=== PATIENT | female | born 1960 | race Two or more races ===

== ENCOUNTER 2021-08-31 13:52 | Inpatient (IN) | payer MEDICAID, OTHER ==
[~2021-08-31] VITALS: Ht 160 cm; Wt 103.8 kg
[2021-08-31] MEDS ORDERED: cloNIDine HCL 0.1 MG TAB ONE (14:12)
[2021-08-31] MEDS ORDERED: cloNIDine HCL 0.1 MG TAB PO ONE (14:30)
[2021-08-31 15:27] LABS: Eosinophils # (auto) 0.1 10 ^3/uL (0-0.8); Hemoglobin 12.2 g/dL (12.2-16.2); Monocytes # (auto) 0.2 10 ^3/uL (0-1.3); Nucleated Red Blood Cells % 0.1 %
[2021-08-31 15:34] LABS: Basophils # (auto) 0.1 10 ^3/uL (0-0.2); Basophils % (auto) 2.5 % (0.0-2.0); Eosinophils % (auto) 1.6 % (0.0-7.0); Hematocrit 37.2 % (36.0-46.0); Lymphocytes # (auto) 1.7 10 ^3/uL (0.4-5.4); Lymphocytes % (auto) 32.8 % (10.0-50.0); Mean Corpuscular Hemoglobin 28.5 pg (28.0-32.0); Mean Corpuscular Hgb Conc. 32.7 g/dL (32.0-36.0); Monocytes % (auto) 3.5 % (0.0-12.0); Neutrophils % (auto) 59.6 % (37.0-80.0); Red Blood Cells 4.28 10^6/uL (4.0-5.20); Red Cell Distribution Width 15.3 % (11.8-14.3); White Blood Cell 5.1 10^3/uL (4.4-10.8)
[2021-08-31 15:42] LABS: INR 1.02 (0.9-1.15); Partial Thromboplastin Time 27.3 sec (23.6-33.0)
[2021-08-31 15:49] LABS: Potassium 3.7 mmol/L (3.5-5.1)
[2021-08-31 15:50] LABS: Albumin 3.6 g/dL (3.4-5.0)
[2021-08-31 15:53] LABS: BUN/Creatinine Ratio 11.7; Bilirubin, Total 0.5 mg/dL (0.2-1.0); Total Protein 7.4 g/dL (6.4-8.2)
[2021-08-31] MEDS ORDERED: ENOXAPARIN SOD 100 MG/1 ML SYRINGE SC ONE (19:45)
[2021-08-31] MEDS ORDERED: ASPirin 81 mg TAB PO ONE (19:45)
[2021-08-31] MEDS ORDERED: NITROGLYCERIN 0.4 MG SL TAB SL PRN ×2 (20:45)
[2021-08-31] MEDS ORDERED: ALUM & MAG HYDROX-SIMETH LIQ(MAALOX) 30 ML PO ONE (20:45)
[2021-08-31] MEDS ORDERED: ATORVASTATIN 20 MG TAB PO ONE (20:45)
[2021-08-31] MEDS ORDERED: MORPHINE SULFATE INJECTION 2 MG/ML SYRG IV PRN (20:45)
[2021-08-31] MEDS ORDERED: MORPHINE SULFATE 4 MG/ML SYR/VIAL IV PRN (20:45)
[2021-08-31] MEDS ORDERED: CLOPIDOGREL 300 MG TAB PO ONE (20:45)
[2021-08-31] MEDS: SODIUM CHLORIDE 0.9% 1,000 ML IV SCH (21:30)
[2021-08-31] MEDS: CARVEDILOL 3.125 MG TAB PO SCH (22:00)
[2021-08-31] MEDS ORDERED: ALUM & MAG HYDROX-SIMETH LIQ(MAALOX) 30 ML PO PRN (23:45)
[2021-09-01] VITALS (7 sets, daily range): BP systolic 109–142; BP diastolic 63–78
[2021-09-01 03:14] LABS: Basophils # (auto) 0.1 10 ^3/uL (0-0.2); Basophils % (auto) 1.8 % (0.0-2.0); Eosinophils # (auto) 0.1 10 ^3/uL (0-0.8); Eosinophils % (auto) 1.5 % (0.0-7.0); Lymphocytes # (auto) 2.3 10 ^3/uL (0.4-5.4); Lymphocytes % (auto) 41.6 % (10.0-50.0); Mean Corpuscular Hemoglobin 28.8 pg (28.0-32.0); Mean Corpuscular Hgb Conc. 33.4 g/dL (32.0-36.0); Mean Corpuscular Volume 86.3 fL (80.0-100.0); Monocytes # (auto) 0.3 10 ^3/uL (0-1.3); Monocytes % (auto) 5.4 % (0.0-12.0); Neutrophils # (auto) 2.8 10 ^3/uL (1.6-8.6); Neutrophils % (auto) 49.7 % (37.0-80.0); Nucleated Red Blood Cells % 0.2 %; Red Blood Cells 4.17 10^6/uL (4.0-5.20); Red Cell Distribution Width 15.6 % (11.8-14.3); White Blood Cell 5.6 10^3/uL (4.4-10.8)
[2021-09-01 04:33] LABS: Albumin 3.5 g/dL (3.4-5.0); Anion Gap 10 (5-15); Blood Urea Nitrogen 15 mg/dL (7-18); Calcium 8.9 mg/dL (8.5-10.1); Carbon Dioxide 24 mmol/L (21-32); Chloride 108 mmol/L (98-107); Glucose 75 mg/dL (74-106); Magnesium 2.6 mg/dL (1.6-2.6); Potassium 3.8 mmol/L (3.5-5.1); Sodium 142 mmol/L (136-145)
[2021-09-01 04:39] LABS: Alanine Aminotransferase 19 U/L (13-56); Alkaline Phosphatase 78 U/L (45-117); Aspartate Aminotransferase 23 U/L (15-37); BUN/Creatinine Ratio 13.9; Bilirubin, Total 0.6 mg/dL (0.2-1.0); Cholesterol 324 mg/dL (< 200); GFR African American 66 mL/min; GFR Non-African American 55 mL/min; HDL Cholesterol 92 mg/dL (40-59); LDL Cholesterol 208 mg/dL (< 100); Total Protein 7.3 g/dL (6.4-8.2); Triglycerides 79 mg/dL (< 150)
[2021-09-01] MEDS: ENOXAPARIN SOD 100 MG/1 ML SYRINGE SC SCH ×2 (08:47→22:41)
[2021-09-01] MEDS: PANTOPRAZOLE 40 MG TAB PO SCH (08:48)
[2021-09-01] MEDS: LISINOPRIL 5 MG TAB PO SCH ×2 (08:50→10:00)
[2021-09-01] MEDS: SODIUM CHLORIDE 0.9% 1,000 ML IV SCH ×2 (08:51→23:25)
[2021-09-01] MEDS: CARVEDILOL 3.125 MG TAB PO SCH ×2 (08:51→22:00)
[2021-09-01] MEDS: ASPirin 81 mg TAB PO SCH (08:52)
[2021-09-01] MEDS: ACETAMINOPHEN 325 MG TAB PO PRN ×2 (08:53→22:49)
[2021-09-01] MEDS ORDERED: ATORVASTATIN 20 MG TAB PO SCH (22:00)
[2021-09-01] MEDS ORDERED: CLOPIDOGREL BISULFATE 75 MG TAB PO SCH (22:00)
[2021-09-02] VITALS (7 sets, daily range): BP systolic 108–126; BP diastolic 63–69
[2021-09-02] MEDS: ENOXAPARIN SOD 100 MG/1 ML SYRINGE SC SCH (08:00)
[2021-09-02] MEDS: CARVEDILOL 3.125 MG TAB PO SCH (10:00)
[2021-09-02] MEDS ORDERED: LISI20TA28 PO (10:02)
[2021-09-02] MEDS ORDERED: ASPI81CH49 PO (10:02)
[2021-09-02] MEDS ORDERED: AMLO-496 PO (10:02)
[2021-09-02] MEDS ORDERED: ATO40T PO (10:02)
[2021-09-02] MEDS ORDERED: HYDR-4902 PO (10:02)
[2021-09-02] MEDS ORDERED: LEVO75TA6 PO (10:02)
[2021-09-02] MEDS: ASPirin 81 mg TAB PO SCH (10:23)
[2021-09-02] MEDS: LISINOPRIL 5 MG TAB PO SCH (10:25)
[2021-09-02] MEDS: PANTOPRAZOLE 40 MG TAB PO SCH (10:25)
== END 2021-09-02 18:15 | disposition home or self-care (01) | DRG 281 ==
LOC: ER 13:52 → TELE 20:38 → TELE-WESTW 09-01 00:48
PROVIDERS: ADMIT Internal Medicine; ATTEND Family Medicine
DX: R07.89 Other chest pain (principal); I21.A1 Myocardial infarction type 2; Z68.41 Body mass index [BMI] 40.0-44.9, adult; I10 Essential (primary) hypertension; Z20.822 Contact with and (suspected) exposure to COVID-19; E03.9 Hypothyroidism, unspecified; E66.9 Obesity, unspecified; E78.00 Pure hypercholesterolemia, unspecified; E78.5 Hyperlipidemia, unspecified; J45.909 Unspecified asthma, uncomplicated; W10.8XXA Fall (on) (from) other stairs and steps, initial encounter; M19.90 Unspecified osteoarthritis, unspecified site; Z82.49 Family history of ischemic heart disease and other diseases of the circulatory system; Z83.3 Family history of diabetes mellitus; Z90.710 Acquired absence of both cervix and uterus; Z91.14 Patient's other noncompliance with medication regimen; Y93.89 Activity, other specified; Y92.89 Other specified places as the place of occurrence of the external cause; Y99.8 Other external cause status; Z91.19 Patient's noncompliance with other medical treatment and regimen
CPT/HCPCS: 36415; 71045; 72131; 73590; 80053; 80061; 83036; 83735; 84484; 85025; 85610; 85730; 93306; 93926; 93971; G0378

== ENCOUNTER 2021-09-30 18:43 | Inpatient (IN) | payer MEDICAID ==
[~2021-09-30] VITALS: Ht 160 cm; Wt 86.7 kg
[~2021-09-30 18:43] MED LIST: AMLO-496 PO; ASPI81CH49 PO; ATO40T PO; HYDR-4902 PO; LEVO75TA6 PO; LISI20TA28 PO
[2021-09-30 20:41] LABS: Basophils # (auto) 0.1 10 ^3/uL (0-0.2); Eosinophils # (auto) 0 10 ^3/uL (0-0.8); Eosinophils % (auto) 0.7 % (0.0-7.0); Hematocrit 36.6 % (36.0-46.0); Hemoglobin 12.2 g/dL (12.2-16.2); Lymphocytes # (auto) 1.9 10 ^3/uL (0.4-5.4); Lymphocytes % (auto) 32.2 % (10.0-50.0); Mean Corpuscular Hemoglobin 28.9 pg (28.0-32.0); Mean Corpuscular Hgb Conc. 33.3 g/dL (32.0-36.0); Mean Corpuscular Volume 86.6 fL (80.0-100.0); Monocytes # (auto) 0.4 10 ^3/uL (0-1.3); Monocytes % (auto) 6.6 % (0.0-12.0); Neutrophils # (auto) 3.5 10 ^3/uL (1.6-8.6); Neutrophils % (auto) 59.5 % (37.0-80.0); Nucleated Red Blood Cells % 0.3 %; Red Blood Cells 4.23 10^6/uL (4.0-5.20); Red Cell Distribution Width 15.3 % (11.8-14.3); White Blood Cell 5.9 10^3/uL (4.4-10.8)
[2021-09-30 21:00] LABS: Albumin 3.4 g/dL (3.4-5.0); BUN/Creatinine Ratio 14.5; Calcium 9.5 mg/dL (8.5-10.1); Potassium 3.3 mmol/L (3.5-5.1)
[2021-09-30 21:02] LABS: Bilirubin, Total 0.6 mg/dL (0.2-1.0); Total Protein 7.5 g/dL (6.4-8.2)
[2021-09-30] MEDS ORDERED: ASPirin 81 mg TAB PO ONE (21:30)
[2021-09-30] MEDS ORDERED: CLOPIDOGREL 300 MG TAB PO ONE (21:30)
[2021-09-30] MEDS ORDERED: ENOXAPARIN SOD 30 MG/0.3 ML SYRINGE IV ONE (21:30)
[2021-09-30] MEDS ORDERED: SODIUM CHLOR 0.9% PF (SALINE LOCK) 10ML VIAL/SYR IV SCH (22:00)
[2021-09-30] MEDS: ENOXAPARIN SOD 100 MG/1 ML SYRINGE SC SCH (22:25)
[2021-09-30 22:27] LABS: Magnesium 2.4 mg/dL (1.6-2.6)
[2021-09-30 22:33] LABS: INR 1.07 (0.9-1.15); Partial Thromboplastin Time 26.2 sec (23.6-33.0)
[2021-10-01] MEDS ORDERED: MORPHINE SULFATE INJ 2 MG/ml SYRG IV PRN (02:30)
[2021-10-01] MEDS ORDERED: POTASSIUM CHL 20 Meq TABLET PO ONE (02:30)
[2021-10-01] MEDS: NITROGLYCERIN 0.4 MG SL TAB SL PRN ×2 (04:27→04:40)
[2021-10-01 04:36] VITALS: BP 151/90
[2021-10-01] MEDS ORDERED: ALBU108A5 IN (04:46)
[2021-10-01 04:52] VITALS: BP 151/90
[2021-10-01] MEDS: SODIUM CHLOR 0.9% PF (SALINE LOCK) 10ML VIAL/SYR IV SCH ×3 (05:37→22:09)
[2021-10-01] MEDS: LEVOTHYROXINE SODIUM 50 MCG TAB PO SCH (07:56)
[2021-10-01 09:00] VITALS: BP 124/87
[2021-10-01] MEDS: LISINOPRIL 20 MG TAB PO SCH (09:37)
[2021-10-01] MEDS: amLODIPine BESYLATE 5 MG TAB PO SCH (09:37)
[2021-10-01] MEDS: ENOXAPARIN SOD 100 MG/1 ML SYRINGE SC SCH (09:42)
[2021-10-01] MEDS ORDERED: PATIENTS OWN MEDICATION (Aspirin 81 MG) PO SCH (10:00)
[2021-10-01] MEDS ORDERED: INFLUENZA QUAD 2021-2022 0.5 ML SYRG IM ONE (10:00)
[2021-10-01] MEDS ORDERED: PNEUMOCOCCAL VACC POLYS 25 MCG/0.5 ML VIAL IM ONE (10:00)
[2021-10-01] MEDS ORDERED: CLOPIDOGREL BISULFATE 75 MG TAB PO ONE (11:00)
[2021-10-01 13:00] VITALS: BP 103/66
[2021-10-01 17:00] VITALS: BP 107/72
[2021-10-01] MEDS: ATORVASTATIN 20 MG TAB PO SCH (17:25)
[2021-10-01 20:00] VITALS: BP 106/76
[2021-10-01 23:47] LABS: Alcohol, Urine < 3.0 mg/dL (0-10); Amphetamine Screen, Urine NEGATIVE (NEGATIVE); Barbiturate Scree,Urine NEGATIVE (NEGATIVE); Benzodiazephine Screen, Urine NEGATIVE (NEGATIVE); Cannabinoid Screen, Urine NEGATIVE (NEGATIVE); Cocaine Screen, Urine NEGATIVE (NEGATIVE); Opiate Scree,Urine POSITIVE (NEGATIVE); Phencyclidine Screen, Urine NEGATIVE (NEGATIVE)
[2021-10-02 05:10] VITALS: BP 106/74
[2021-10-02] MEDS: SODIUM CHLOR 0.9% PF (SALINE LOCK) 10ML VIAL/SYR IV SCH ×3 (06:10→22:08)
[2021-10-02] MEDS: LEVOTHYROXINE SODIUM 50 MCG TAB PO SCH (07:00)
[2021-10-02 08:00] VITALS: BP 105/71
[2021-10-02] MEDS: LISINOPRIL 20 MG TAB PO SCH (09:55)
[2021-10-02] MEDS: amLODIPine BESYLATE 5 MG TAB PO SCH (09:55)
[2021-10-02] MEDS: ASPirin 81 mg TAB PO SCH (09:56)
[2021-10-02] MEDS: CLOPIDOGREL BISULFATE 75 MG TAB PO SCH (09:56)
[2021-10-02 12:00] VITALS: BP 124/71
[2021-10-02] MEDS ORDERED: traMADol HCL 50 MG TAB PO SCH (12:15)
[2021-10-02] MEDS ORDERED: PANTOPRAZOLE 40 MG TAB PO ONE (14:15)
[2021-10-02 15:03] LABS: Calcium 9.4 mg/dL (8.5-10.1); Potassium 3.9 mmol/L (3.5-5.1)
[2021-10-02 15:05] LABS: BUN/Creatinine Ratio 19.3
[2021-10-02] MEDS: IBUPROFEN 600 MG TAB PO SCH ×2 (15:43→22:09)
[2021-10-02] MEDS: traMADol HCL 50 MG TAB PO PRN (15:44)
[2021-10-02 16:00] VITALS: BP 109/75
[2021-10-02] MEDS: ATORVASTATIN 20 MG TAB PO SCH (17:48)
[2021-10-02] MEDS: DOCUSATE SOD 100 MG CAP PO PRN (17:48)
[2021-10-02 22:00] VITALS: BP 113/81
[2021-10-03] VITALS (7 sets, daily range): BP systolic 92–119; BP diastolic 65–73
[2021-10-03] MEDS: SODIUM CHLOR 0.9% PF (SALINE LOCK) 10ML VIAL/SYR IV SCH ×3 (06:20→22:28)
[2021-10-03] MEDS: IBUPROFEN 600 MG TAB PO SCH ×3 (06:20→22:28)
[2021-10-03] MEDS: LEVOTHYROXINE SODIUM 50 MCG TAB PO SCH (06:55)
[2021-10-03] MEDS ORDERED: ADENOSINE 74 MG in GIVE UN-DILUTED 0 ML IV STA (08:10)
[2021-10-03] MEDS: CLOPIDOGREL BISULFATE 75 MG TAB PO SCH (09:51)
[2021-10-03] MEDS: ASPirin 81 mg TAB PO SCH (09:51)
[2021-10-03] MEDS: PANTOPRAZOLE 40 MG TAB PO SCH (09:51)
[2021-10-03] MEDS: amLODIPine BESYLATE 5 MG TAB PO SCH (09:59)
[2021-10-03] MEDS: LISINOPRIL 20 MG TAB PO SCH (10:00)
[2021-10-03] MEDS: traMADol HCL 50 MG TAB PO PRN (11:09)
[2021-10-03] MEDS ORDERED: LEVOTHYROXINE SODIUM 100 MCG/5 ML INJ IV ONE (11:15)
[2021-10-03 12:11] LABS: Free T4 (Free Thyroxine) 0.52 ng/dL (0.89-1.76)
[2021-10-03 12:12] LABS: Free T3 0.94 pg/mL (2.3-4.2)
[2021-10-03] MEDS: ATORVASTATIN 20 MG TAB PO SCH (22:28)
[2021-10-04 05:00] VITALS: BP 109/67
[2021-10-04] MEDS: SODIUM CHLOR 0.9% PF (SALINE LOCK) 10ML VIAL/SYR IV SCH ×3 (05:40→22:18)
[2021-10-04] MEDS: IBUPROFEN 600 MG TAB PO SCH ×3 (05:40→22:19)
[2021-10-04] MEDS: LEVOTHYROXINE SODIUM 50 MCG TAB PO SCH (05:40)
[2021-10-04 09:00] VITALS: BP 111/70
[2021-10-04] MEDS: ONDANSETRON HCL 4 MG/2 ML VIAL IV PRN (09:10)
[2021-10-04] MEDS: amLODIPine BESYLATE 5 MG TAB PO SCH (10:00)
[2021-10-04] MEDS: LISINOPRIL 20 MG TAB PO SCH (10:00)
[2021-10-04] MEDS: PANTOPRAZOLE 40 MG TAB PO SCH (10:29)
[2021-10-04] MEDS: DOCUSATE SOD 100 MG CAP PO PRN (10:29)
[2021-10-04] MEDS: CLOPIDOGREL BISULFATE 75 MG TAB PO SCH (10:29)
[2021-10-04] MEDS: ASPirin 81 mg TAB PO SCH (10:29)
[2021-10-04] MEDS: LEVOTHYROXINE SODIUM 100 MCG/5 ML INJ IV SCH (10:30)
[2021-10-04] MEDS ORDERED: LACTULOSE 20Gm/30ML SOLN PO ONE (11:30)
[2021-10-04 12:00] VITALS: BP 134/78
[2021-10-04 16:00] VITALS: BP 115/75
[2021-10-04] MEDS: ATORVASTATIN 20 MG TAB PO SCH (20:27)
[2021-10-04 22:00] VITALS: BP 118/76
[2021-10-05 05:00] VITALS: BP 121/74
[2021-10-05] MEDS: SODIUM CHLOR 0.9% PF (SALINE LOCK) 10ML VIAL/SYR IV SCH ×3 (06:14→21:20)
[2021-10-05] MEDS: LEVOTHYROXINE SODIUM 50 MCG TAB PO SCH (06:15)
[2021-10-05] MEDS: IBUPROFEN 600 MG TAB PO SCH ×3 (06:15→21:21)
[2021-10-05 09:00] VITALS: BP 117/75
[2021-10-05] MEDS: LEVOTHYROXINE SODIUM 100 MCG/5 ML INJ IV SCH (09:53)
[2021-10-05] MEDS: ASPirin 81 mg TAB PO SCH (09:53)
[2021-10-05] MEDS: PANTOPRAZOLE 40 MG TAB PO SCH (09:54)
[2021-10-05] MEDS: LISINOPRIL 20 MG TAB PO SCH (09:54)
[2021-10-05] MEDS: amLODIPine BESYLATE 5 MG TAB PO SCH (09:54)
[2021-10-05] MEDS: CLOPIDOGREL BISULFATE 75 MG TAB PO SCH (09:54)
[2021-10-05] MEDS: traMADol HCL 50 MG TAB PO PRN ×2 (09:54→18:34)
[2021-10-05 13:20] VITALS: BP 100/67
[2021-10-05 17:00] VITALS: BP 110/64
[2021-10-05] MEDS: ATORVASTATIN 20 MG TAB PO SCH (18:35)
[2021-10-05] MEDS: ONDANSETRON HCL 4 MG/2 ML VIAL IV PRN (21:22)
[2021-10-05 22:00] VITALS: BP 111/73
[2021-10-06 05:00] VITALS: BP 103/70
[2021-10-06] MEDS: SODIUM CHLOR 0.9% PF (SALINE LOCK) 10ML VIAL/SYR IV SCH ×3 (06:27→21:41)
[2021-10-06] MEDS: IBUPROFEN 600 MG TAB PO SCH ×3 (06:27→21:41)
[2021-10-06] MEDS: LEVOTHYROXINE SODIUM 50 MCG TAB PO SCH (06:27)
[2021-10-06 09:00] VITALS: BP 117/76
[2021-10-06] MEDS: amLODIPine BESYLATE 5 MG TAB PO SCH (09:11)
[2021-10-06] MEDS: LEVOTHYROXINE SODIUM 100 MCG/5 ML INJ IV SCH (09:11)
[2021-10-06] MEDS: CLOPIDOGREL BISULFATE 75 MG TAB PO SCH (09:12)
[2021-10-06] MEDS: LISINOPRIL 20 MG TAB PO SCH (09:12)
[2021-10-06] MEDS: traMADol HCL 50 MG TAB PO PRN (09:13)
[2021-10-06] MEDS: PANTOPRAZOLE 40 MG TAB PO SCH (09:13)
[2021-10-06] MEDS: ASPirin 81 mg TAB PO SCH (10:00)
[2021-10-06] MEDS ORDERED: IOHEXOL 300 MG/ML 100ML BOTTLE IJ ONE (10:48)
[2021-10-06 13:00] VITALS: BP 102/62
[2021-10-06 17:00] VITALS: BP 116/73
[2021-10-06] MEDS: ATORVASTATIN 20 MG TAB PO SCH (17:46)
[2021-10-06 22:00] VITALS: BP 125/69
[2021-10-07 05:00] VITALS: BP 117/70
[2021-10-07] MEDS: LEVOTHYROXINE SODIUM 50 MCG TAB PO SCH (06:13)
[2021-10-07] MEDS: IBUPROFEN 600 MG TAB PO SCH ×3 (06:13→22:10)
[2021-10-07] MEDS: SODIUM CHLOR 0.9% PF (SALINE LOCK) 10ML VIAL/SYR IV SCH ×3 (06:14→22:10)
[2021-10-07] MEDS: LEVOTHYROXINE SODIUM 100 MCG/5 ML INJ IV SCH (08:35)
[2021-10-07] MEDS: ASPirin 81 mg TAB PO SCH (08:35)
[2021-10-07] MEDS: CLOPIDOGREL BISULFATE 75 MG TAB PO SCH (08:36)
[2021-10-07] MEDS: amLODIPine BESYLATE 5 MG TAB PO SCH (08:36)
[2021-10-07] MEDS: PANTOPRAZOLE 40 MG TAB PO SCH (08:36)
[2021-10-07] MEDS: LISINOPRIL 20 MG TAB PO SCH (08:37)
[2021-10-07 09:00] VITALS: BP 117/72
[2021-10-07] MEDS: traMADol HCL 50 MG TAB PO PRN (09:49)
[2021-10-07] MEDS: KETOROLAC TROMETH 30 MG/ML 1ML VIAL IV PRN (12:14)
[2021-10-07 13:00] VITALS: BP 108/53
[2021-10-07 17:00] VITALS: BP 104/60
[2021-10-07] MEDS: ATORVASTATIN 20 MG TAB PO SCH (18:05)
[2021-10-07 22:00] VITALS: BP 96/55
[2021-10-08 05:00] VITALS: BP 101/67
[2021-10-08] MEDS: IBUPROFEN 600 MG TAB PO SCH ×3 (06:13→21:44)
[2021-10-08] MEDS: LEVOTHYROXINE SODIUM 50 MCG TAB PO SCH (06:13)
[2021-10-08] MEDS: SODIUM CHLOR 0.9% PF (SALINE LOCK) 10ML VIAL/SYR IV SCH ×3 (06:14→21:43)
[2021-10-08 08:00] VITALS: BP 106/60
[2021-10-08 09:00] VITALS: BP 106/60
[2021-10-08] MEDS: LEVOTHYROXINE SODIUM 100 MCG/5 ML INJ IV SCH (09:54)
[2021-10-08] MEDS: LISINOPRIL 20 MG TAB PO SCH (09:58)
[2021-10-08] MEDS: PANTOPRAZOLE 40 MG TAB PO SCH (09:59)
[2021-10-08] MEDS: CLOPIDOGREL BISULFATE 75 MG TAB PO SCH (09:59)
[2021-10-08] MEDS: ASPirin 81 mg TAB PO SCH (10:00)
[2021-10-08] MEDS: amLODIPine BESYLATE 5 MG TAB PO SCH (10:00)
[2021-10-08 13:00] VITALS: BP 103/70
[2021-10-08 17:00] VITALS: BP 103/63
[2021-10-08] MEDS: ATORVASTATIN 20 MG TAB PO SCH (18:17)
[2021-10-08 22:00] VITALS: BP 105/54
[2021-10-09 05:00] VITALS: BP 92/61
[2021-10-09] MEDS: SODIUM CHLOR 0.9% PF (SALINE LOCK) 10ML VIAL/SYR IV SCH (05:04)
[2021-10-09] MEDS: IBUPROFEN 600 MG TAB PO SCH ×2 (05:04→15:11)
[2021-10-09] MEDS: KETOROLAC TROMETH 30 MG/ML 1ML VIAL IV PRN (05:05)
[2021-10-09] MEDS: LEVOTHYROXINE SODIUM 50 MCG TAB PO SCH (06:31)
[2021-10-09 08:00] VITALS: BP 119/60
[2021-10-09 08:51] VITALS: BP 119/60
[2021-10-09] MEDS: LEVOTHYROXINE SODIUM 100 MCG/5 ML INJ IV SCH (09:48)
[2021-10-09] MEDS: amLODIPine BESYLATE 5 MG TAB PO SCH (09:50)
[2021-10-09] MEDS: PANTOPRAZOLE 40 MG TAB PO SCH (09:50)
[2021-10-09] MEDS: CLOPIDOGREL BISULFATE 75 MG TAB PO SCH (09:50)
[2021-10-09] MEDS: LISINOPRIL 20 MG TAB PO SCH (09:51)
[2021-10-09] MEDS: ASPirin 81 mg TAB PO SCH (09:51)
[2021-10-09] MEDS ORDERED: LEVO75TA6 PO (11:02)
[2021-10-09] MEDS ORDERED: LISI20TA28 PO (11:02)
[2021-10-09] MEDS ORDERED: AMLO-496 PO (11:02)
[2021-10-09] MEDS ORDERED: ATO40T PO (11:02)
[2021-10-09] MEDS ORDERED: HYDR-4902 PO (11:02)
[2021-10-09] MEDS ORDERED: ALBUAER3 IN (11:02)
[2021-10-09] MEDS ORDERED: ASPI81CH74 PO (11:02)
[2021-10-09 13:00] VITALS: BP 129/79
[2021-10-09 15:21] VITALS: BP 119/60
== END 2021-10-09 17:10 | disposition home or self-care (01) | DRG 190 ==
LOC: ER 18:43 → TELE 10-01 02:21 → TELE-WESTW 10-01 03:35
PROVIDERS: ADMIT Internal Medicine; ATTEND Family Medicine
DX: I21.4 Non-ST elevation (NSTEMI) myocardial infarction (principal); I50.33 Acute on chronic diastolic (congestive) heart failure; E87.6 Hypokalemia; I11.0 Hypertensive heart disease with heart failure; E03.9 Hypothyroidism, unspecified; E66.9 Obesity, unspecified; E78.5 Hyperlipidemia, unspecified; J45.909 Unspecified asthma, uncomplicated; M17.12 Unilateral primary osteoarthritis, left knee; Z20.822 Contact with and (suspected) exposure to COVID-19; Z80.3 Family history of malignant neoplasm of breast; Z68.33 Body mass index [BMI] 33.0-33.9, adult; Z83.3 Family history of diabetes mellitus; Z90.710 Acquired absence of both cervix and uterus; Z91.14 Patient's other noncompliance with medication regimen; Z23 Encounter for immunization
CPT/HCPCS: 36415; 71045; 71260; 73562; 73700; 78452; 80048; 80053; 80061; 80307; 83735; 83880; 84439; 84443; 84481; 84484; 85025; 85610; 85730; 87081; 93005; 93017; 93306; 96374; 96375; 97116; 97163; 97530; G0378; J0153; J1885; J2405; J3490